=== PATIENT | female | born 1955 | race Hispanic/Latino ===

== ENCOUNTER 2017-11-03 08:11 | Outpatient (CLI) | payer OTHER ==
[2017-11-03] MEDS ORDERED: Iopamidol 370 76% 100 ML VIAL ONE (09:00)
--- NOTE | 2017-11-03 11:00 | CT ---
EXAM: CT abdomen pelvis with contrast COMPARISON: None History: Abdominal pain Findings: Lung bases are clear. No pericardial effusion. Prior cholecystectomy. The spleen, pancreas, and adrenal glands are unremarkable. No hydroureteronephrosis or nephroureterol ithiasis. Appendix is visualized and is normal. Moderate degenerative disease of the pubic symphysis. Type III-B lumbosacral transitional vertebra. Bilateral L4 pars interarticularis defects. IMPRESSION: No acute inflammatory process in the abdomen or pelvis. POS: [facility]
== END 2017-11-03 08:12 | disposition home or self-care (01) ==
LOC: NAV CT 08:11
PROVIDERS: ATTEND Family Medicine
DX: R10.9 Unspecified abdominal pain (principal)
CPT/HCPCS: 74177

== ENCOUNTER 2017-11-13 07:54 | Emergency (ER) | payer OTHER ==
[2017-11-13] MEDS ORDERED: Sodium Chloride 0.9% 1,000 ML ONE (08:48)
[2017-11-13] MEDS ORDERED: Ondansetron HCl/PF 4 MG/2 ML Vial ONE ×2 (08:48→10:39)
[2017-11-13 09:17] LABS: Bilirubin Negative (Negative); Blood, Urine Negative (Negative); Clarity Clear (Clear); Glucose, Urine (Dipstick) Negative (Negative); Leukocyte Negative (Negative); Nitrite Negative (Negative); Protein, Urine (Dipstick) Negative (Neg-Trace); Urobilinogen 0.2 mg/dL (0.2-1.0)
[2017-11-13 09:29] LABS: #Basophils 0.1 thou/uL (0.0-0.2); #Eosinphils 0.3 thou/uL (0.0-0.7); #Lymphocytes 1.8 thou/uL (1.20-3.40); #Monocytes 0.5 thou/uL (0.11-0.59); #Neutrophils 2.6 thou/uL (1.40-6.50); %Basophils 2.3 % (0.0-1.0); %Eosinophils 5.4 % (0.0-10.0); %Lymphocytes 33.3 % (21.0-51.0); %Monocytes 9.9 % (0.0-10.0); %Neutrophils 49.1 % (42.0-75.0); Hemoglobin 14.5 g/dL (12.0-16.0); Mean Corpuscular HGB CONC 31.5 g/dL (32.0-36.0); Mean Corpuscular Hemoglobin 28.3 pg (27.0-31.0); Mean Corpuscular Volume 90.1 fL (78.0-98.0); Mean Platelet Volume 5.9 fL (7.4-10.4); Platelet Count 368 thou/uL (130-400); RBC Distribution Width 12.4 % (11.5-14.5); White Blood Cell (WBC) Count 5.4 thou/uL (4.8-10.8)
[2017-11-13 09:37] LABS: ALT (SGPT) 28 U/L (8-55); AST (SGOT) 24 U/L (5-34); Albumin 4.5 g/dL (3.5-5.0); Alkaline Phosphatase 65 U/L (40-150); Anion Gap 15 mmol/L (10-20); BUN (Urea Nitrogen) 17 mg/dL (9.8-20.1); Bilirubin, Total 0.6 mg/dL (0.2-1.2); Calc. Creatinine Clearance 0 mL/min (70-130); Calcium 10.3 mg/dL (7.8-10.44); Carbon Dioxide 27 mmol/L (22-29); Chloride 102 mmol/L (98-107); Estimated GFR-MDRD 66; Globulin 3.5 g/dL (2.4-3.5); Glucose 96 mg/dL (70-105); Lipase 28 U/L (8-78); Sodium 140 mmol/L (136-145)
[2017-11-13 09:38] LABS: CKMB 0.5 ng/mL (0-6.6); Troponin I Less than 0.010 ng/mL (< 0.028)
[2017-11-13] MEDS ORDERED: Mag-Al Plus 1200 MG/1200 MG/120 MG/30 ML UDCUP ONE ×3 (09:53→12:38)
[2017-11-13] MEDS ORDERED: Lidocaine Viscous Sol 2% 15 ml UD Cup ONE ×3 (09:54→12:38)
--- NOTE | 2017-11-13 10:00 | ULT ---
ABDOMINAL ULTRASOUND: Date: 11-13-17 History: Right upper quadrant abdominal pain radiating to the left upper quadrant. Pain has become wo rse over the last two days. History of cholecystectomy one month ago. Comparison: CT abdomen/pelvis 11-03-17. FINDINGS: The gallbladder is not visualized consistent with patient's reported history of prior cholecystectomy and was also confirmed on CT exam. Common duct is only partially imaged and measures 0.75 cm, within normal limits post cholecystomy changes. The majority of the pancreas is obscured by bowel gas and not well evaluated. The liver demonstrates mild increased echogenicity suggesting mild fatty infiltration. No focal hepat ic lesion is seen. The visualized portions of the IVC, abdominal aorta, spleen, and bilateral kidneys demonstrate a norm al sonographic appearance. Each kidney measures approximately 10 cm in length. IMPRESSION: 1. Mild fatty infiltration of the liver. 2. Cholecystectomy changes. POS: [facility]
--- NOTE | 2017-11-13 10:46 | RAD ---
CHEST ONE VIEW: ABDOMEN TWO VIEWS: HISTORY: A 62-year-old female with a history of upper abdominal and epigastric pain. FINDINGS: Mild increased markings within the lungs with no confluent pneumonia, overt edema, or pleural effusio n. Atherosclerosis of the aorta. Scattered gas and fecal material throughout the colon. No overt free intraperitoneal air or large or small bowel obstruction. There is some gas within a nondilated small bowel loop in the right abdome n. IMPRESSION: 1. Gas and fecal material in the colon. 2. No overt bowel obstruction or free air. POS: [facility]
[2017-11-13] MEDS ORDERED: Promethazine HCl 25 MG/ML VIAL ONE (11:16)
[2017-11-13] MEDS ORDERED: Sodium Chloride 0.9% 250 ML 250 ML ONE (11:16)
== END 2017-11-13 13:30 | disposition home or self-care (01) ==
LOC: NAV ERS 07:54
DX: R10.13 Epigastric pain (principal); K21.9 Gastro-esophageal reflux disease without esophagitis; E03.9 Hypothyroidism, unspecified; F17.210 Nicotine dependence, cigarettes, uncomplicated; Z79.899 Other long term (current) drug therapy
CPT/HCPCS: 36415; 74022; 76700; 80053; 81003; 82553; 83605; 83690; 84484; 85025; 93005; 94760; 96361; 96365; 96375; 96376; J2270; J2405; J2550; J7050

== ENCOUNTER 2018-01-24 14:47 | Emergency (ER) | payer OTHER | END 2018-01-24 15:50 | disposition home or self-care (01) | LOC: NAV ERS 14:47 | DX: J06.9 Acute upper respiratory infection, unspecified (principal); K21.9 Gastro-esophageal reflux disease without esophagitis; E03.9 Hypothyroidism, unspecified; Z87.891 Personal history of nicotine dependence; Z79.899 Other long term (current) drug therapy | CPT/HCPCS: 99283 ==

== ENCOUNTER 2018-07-25 17:30 | Emergency (ER) | payer MEDICARE ==
[2018-07-25] MEDS ORDERED: Aspirin Chewable 81 MG TAB ONE (18:01)
[2018-07-25 18:22] LABS: ALT (SGPT) 13 U/L (8-55); AST (SGOT) 22 U/L (5-34); Albumin 3.8 g/dL (3.4-4.8); Alkaline Phosphatase 78 U/L (40-150); Anion Gap 17 mmol/L (10-20); BUN (Urea Nitrogen) 18 mg/dL (9.8-20.1); Bilirubin, Total 0.6 mg/dL (0.2-1.2); Calc. Creatinine Clearance 0 mL/min (70-130); Calcium 9.2 mg/dL (7.8-10.44); Carbon Dioxide 24 mmol/L (23-31); Chloride 100 mmol/L (98-107); Estimated GFR-MDRD 89; Globulin 3.8 g/dL (2.4-3.5); Glucose 102 mg/dL (80-115); Potassium 3.9 mmol/L (3.5-5.1); Protein, Total 7.6 g/dL (6.0-8.3); Sodium 137 mmol/L (136-145)
[2018-07-25] MEDS ORDERED: Iopamidol 370 76% 100 ML VIAL ONE (18:30)
--- NOTE | 2018-07-25 18:38 | RAD ---
CHEST TWO VIEW 07/25/18 HISTORY: Cough. Pneumonia. COMPARISON: Radiograph of 07/11/18. FINDINGS: Pleural effusions have improved from the comparison examination. Small effusions persists. Heart size upper limits of normal. No pneumothorax. No basilar consolidation. IMPRESSION: Small persistent pleural effusions. POS: HOME
[2018-07-25 18:42] LABS: Eosinophils 4 % (0-10); Hemoglobin 12.1 g/dL (12.0-16.0); Lymphocytes 18 % (21-51); MDiff Complete? YES; Mean Corpuscular Hemoglobin 27.4 pg (27.0-31.0); Mean Corpuscular Volume 91.5 fL (78.0-98.0); Mean Platelet Volume 5.2 fL (7.4-10.4); Monocytes 3 % (0-10); Neutrophil 75 % (42-75); Platelet Count 479 thou/uL (130-400); Polychromasia SLIGHT = 2-3 cells (100X) (0-2/hpf); RBC Distribution Width 15.5 % (11.5-14.5); White Blood Cell (WBC) Count 5.8 thou/uL (4.8-10.8)
[2018-07-25] MEDS ORDERED: Morphine 4 MG/ML VIAL ONE ×2 (19:15→20:34)
[2018-07-25] MEDS ORDERED: Ondansetron PF 4 MG/2 ML Vial ONE (19:15)
--- NOTE | 2018-07-25 20:01 | CT ---
CT ANGIOGRAM OF CHEST WITH CONTRAST 07/25/18 HISTORY: Chest pain. COMPARISON: Chest radiograph same day. FINDINGS: CT angiogram chest performed after the intravenous administration of contrast. 3D rendering provided. There is an embolism within the right lower lobe pulmonary artery with extension to the anterior basa l right lower lobe segmental branch. There are also emboli within the segmental arterial branches inc luding the lateral basal and anterior basal left lower lobe as well as of the posterior basal left u pper lobe. No significant reflux of contrast. There appears to be possibly some free intraperitoneal gas althoug h decreased since the 07/10/18 exam. Small collection of fluid along the second portion duodenum. Moderate right pleural effusion. Mild atelectatic changes throughout the lungs. No acute osseous abno rmality. IMPRESSION: 1. Multiple bilateral segmental pulmonary emboli. 2. Moderate right pleural effusion. 3. Continued pneumoperitoneum is abnormal this far after surgery. There is also a subcapsular co llection on the hepatic segment III as well as some fluid on the second portion of the duodenum. Surg ical consultation advised. Code SHARIF Pichardo at 7:53 p.m. POS: HOME
[2018-07-25] MEDS ORDERED: Enoxaparin Sodium 100 MG/ML SYRINGE ONE (20:07)
== END 2018-07-25 20:43 | disposition short-term general hospital (02) ==
LOC: NAV ERS 17:30
DX: J90 Pleural effusion, not elsewhere classified (principal); R06.02 Shortness of breath; M26.622 Arthralgia of left temporomandibular joint; E78.5 Hyperlipidemia, unspecified; K21.9 Gastro-esophageal reflux disease without esophagitis; E03.9 Hypothyroidism, unspecified; F41.9 Anxiety disorder, unspecified; F32.9 Major depressive disorder, single episode, unspecified; Z87.891 Personal history of nicotine dependence; Z87.01 Personal history of pneumonia (recurrent); Z79.899 Other long term (current) drug therapy
CPT/HCPCS: 71046; 71275; 80053; 82150; 83605; 83690; 84484; 85025; 85379; 93005; 96372; 96374; 96375; 96376; J1650; J2270; J2405; Q9967

== ENCOUNTER 2018-08-04 19:24 | Inpatient (IN) | payer MEDICARE ==
[2018-08-04 20:01] VITALS: BMI 38.2
[2018-08-04] MEDS ORDERED: ACETIC ACID 2% L EAR PRN (21:43)
[2018-08-04] MEDS ORDERED: Cyclobenzaprine 10 MG TAB PO PRN (21:47)
[2018-08-04] MEDS: traMADol HCl 50 MG TAB PO PRN (22:03)
[2018-08-04] MEDS: Acetaminophen 325 MG TAB PO PRN (22:03)
[2018-08-05] MEDS: Ciprofloxacin 500 MG TAB PO SCH (05:09)
[2018-08-05] MEDS: Levothyroxine Sodium 50 MCG TAB PO SCH (05:10)
[2018-08-05 05:27] LABS: #Basophils 0.1 thou/uL (0.0-0.2); #Eosinphils 0.4 thou/uL (0.0-0.7); #Lymphocytes 1.3 thou/uL (1.20-3.40); #Monocytes 0.4 thou/uL (0.11-0.59); #Neutrophils 2.1 thou/uL (1.40-6.50); %Basophils 2.2 % (0.0-1.0); %Eosinophils 9.6 % (0.0-10.0); %Lymphocytes 29.7 % (21.0-51.0); %Monocytes 10.2 % (0.0-10.0); %Neutrophils 48.3 % (42.0-75.0); Hemoglobin 11.2 g/dL (12.0-16.0); Mean Corpuscular HGB CONC 29.5 g/dL (32.0-36.0); Mean Corpuscular Hemoglobin 26.7 pg (27.0-31.0); Mean Corpuscular Volume 90.6 fL (78.0-98.0); Mean Platelet Volume 5.3 fL (7.4-10.4); Platelet Count 436 thou/uL (130-400); RBC Distribution Width 14.7 % (11.5-14.5); White Blood Cell (WBC) Count 4.4 thou/uL (4.8-10.8)
[2018-08-05 05:38] LABS: Anion Gap 17 mmol/L (10-20); BUN (Urea Nitrogen) 13 mg/dL (9.8-20.1); Calc. Creatinine Clearance 107 mL/min (70-130); Calcium 9.3 mg/dL (7.8-10.44); Carbon Dioxide 26 mmol/L (23-31); Chloride 102 mmol/L (98-107); Estimated GFR-MDRD 79; Glucose 90 mg/dL (80-115); Potassium 4.7 mmol/L (3.5-5.1); Sodium 140 mmol/L (136-145)
[2018-08-05] MEDS: Apixaban 5 MG TAB PO SCH ×2 (08:59→09:00)
[2018-08-05] MEDS: VITAMIN K2 PO SCH (09:00)
[2018-08-05] MEDS: VITAMIN D3 PO SCH (09:00)
[2018-08-05] MEDS: Multivitamin W/ Minerals 1 TAB PO SCH (09:00)
[2018-08-05] MEDS: Cyanocobalamin (Vitamin B-12) 1,000 MCG TAB PO SCH (09:00)
[2018-08-05] MEDS: traMADol HCl 50 MG TAB PO PRN (12:21)
[2018-08-05] MEDS: Acetaminophen 325 MG TAB PO PRN (12:21)
--- NOTE | 2018-08-05 14:50 | HP ---
CHIEF COMPLAINT: Pulmonary embolism and DVT with recent gastric sleeve requiring physical therapy. BRIEF HISTORY: This is a pleasant, overweight, 63-year-old, female, who recently underwent gastric sleeve surgery on July 08, presented to the hospital with severe right calf pain and chest pain on . CT chest was consistent with pulmonary embolism and was started on anticoagulation. Venous Doppler showed partially occlusive thrombus in the right posterior tibial vein. There was some free air seen intra-abdominally, but General Surgery felt that this was just consequent to the sleeve placement, and there is no evidence for any perforation. Currently, the patient is resting in bed and complaining of some pleuritic-type chest pain. She denies any shortness of breath. She denies any hemoptysis. She denies any PND or orthopnea. PAST MEDICAL HISTORY: 1. Dyslipidemia. 2. Gastroesophageal reflux disease. 3. Hypothyroidism. 4. Fibromyalgia. 5. Obesity, status post gastric sleeve surgery. 6. Cholelithiasis. 7. Anxiety and depression. PAST SURGICAL HISTORY: 1. Cervical and lumbar spinal surgery. 2. Lap-Band surgery in August 2016, and gastric sleeve placement in June 2018, and she apparently had surgery for removal of gallstones. FAMILY HISTORY: Noncontributory to current admission. PSYCHOSOCIAL HISTORY: Good family support. Used to smoke in the past. Denies any alcohol or recreational drug abuse. ALLERGIES: BACTRIM AND BACTROBAN OINTMENT. REVIEW OF SYSTEMS: RESPIRATORY: Occasional pleuritic-type chest pain and cough. Denies any hemoptysis. Denies any PND or orthopnea. CARDIOVASCULAR: Denies any palpitations. GASTROINTESTINAL: Denies any nausea, vomiting, diarrhea, constipation, hematemesis, melena, or hematochezia. GENITOURINARY: Denies any frequency, urgency, dysuria, or hematuria. CENTRAL NERVOUS SYSTEM: Generalized weakness. HEENT: Denies any difficulty with speech, vision, hearing, or swallowing. SKIN: Denies any rash. PHYSICAL EXAMINATION: GENERAL: A pleasant, 63-year-old, overweight, female, who is resting comfortably in bed and denies any concerns. She is alert, awake, and oriented x3. VITAL SIGNS: She is afebrile. Heart rate is 98, respirations 20, oxygen saturation 95% on room air, blood pressure 118/80. HEENT: Normocephalic and atraumatic. Pupils are equally reactive to light and accommodation. NECK: No JVD, thyromegaly, cervical lymphadenopathy, or throat exudates. No carotid bruits. CARDIOVASCULAR: S1 and S2 plus. Rate and rhythm are regular. RESPIRATORY: Normal vesicular breath sounds heard in all lung sanchez. ABDOMEN: Soft and nontender. Bowel sounds in all quadrants. EXTREMITIES: Without cyanosis or clubbing. Trace right leg edema. CENTRAL NERVOUS SYSTEM: Awake and responsive. Cranial nerves 2 through 12 intact. Generalized weakness. IMPRESSION: 1. Right lower extremity deep venous thrombosis and pulmonary embolism. 2. Hypothyroidism. 3. Fibromyalgia. 4. Dyslipidemia. 5. Recent gastric sleeve surgery. 6. Anxiety and depression. PLAN: 1. Continue discharge medications from the previous hospitalization, which are: a. Tylenol 650 q.4 p.r.n. b. Eliquis 10 mg b.i.d., that will be for till the , then she will start 5 mg b.i.d. from the . c. Cipro 500 mg b.i.d. d. Flexeril 10 mg t.i.d. p.r.n. e. Neurontin 300 mg at bedtime. f. Synthroid 50 mcg daily. g. Protonix 40 mg daily. h. Zocor 10 mg daily. i. Tramadol 50 mg b.i.d. p.r.n. 2. Heart-healthy diet. 3. Monitor for any signs or symptoms of bleeding. 4. Monitor GI system. 5. PT and OT to eval and treat. 6. Routine laboratory values. 7. Pain control. 8. Discussed with the patient and nursing in detail, and all questions were answered. Recent laboratory values done today show a white count of 4.4, H and H are 11.2 and 38. Sodium 140, potassium 4.7, BUN and creatinine are 13 and 0.75. Job ID: [id number]
[2018-08-05] MEDS: Ondansetron ODT 4 MG TAB SL PRN (18:45)
[2018-08-06] MEDS ORDERED: Ciprofloxacin 500 MG TAB ONE (05:40)
[2018-08-06] MEDS ORDERED: Levothyroxine Sodium 50 MCG TAB ONE (05:40)
[2018-08-06] MEDS: Gabapentin 300 MG CAP PO SCH ×2 (08:45→20:26)
[2018-08-06] MEDS: Simvastatin 10 MG TAB PO SCH ×2 (08:45→20:26)
[2018-08-06] MEDS: Apixaban 5 MG TAB PO SCH ×3 (08:45→20:26)
[2018-08-06] MEDS: Ciprofloxacin 500 MG TAB PO SCH ×2 (08:45→20:26)
[2018-08-06] MEDS: Levothyroxine Sodium 50 MCG TAB PO SCH (08:46)
[2018-08-06] MEDS: Cyanocobalamin (Vitamin B-12) 1,000 MCG TAB PO SCH (09:54)
[2018-08-06] MEDS: Multivitamin W/ Minerals 1 TAB PO SCH (09:55)
[2018-08-06] MEDS: VITAMIN D3 PO SCH (09:55)
[2018-08-06] MEDS: Acetaminophen 325 MG TAB PO PRN (09:55)
[2018-08-06] MEDS: VITAMIN K2 PO SCH (09:55)
[2018-08-06] MEDS: Ondansetron ODT 4 MG TAB SL PRN (20:25)
[2018-08-06] MEDS: traMADol HCl 50 MG TAB PO PRN (20:31)
[2018-08-07] MEDS: Levothyroxine Sodium 50 MCG TAB PO SCH (06:17)
[2018-08-07] MEDS: Ciprofloxacin 500 MG TAB PO SCH ×2 (06:17→20:35)
[2018-08-07] MEDS: Multivitamin W/ Minerals 1 TAB PO SCH (09:02)
[2018-08-07] MEDS: Apixaban 5 MG TAB PO SCH ×2 (09:02→20:35)
[2018-08-07] MEDS: Cyanocobalamin (Vitamin B-12) 1,000 MCG TAB PO SCH (09:02)
[2018-08-07] MEDS: Ondansetron ODT 4 MG TAB SL PRN (11:10)
--- NOTE | 2018-08-07 12:56 | PRG ---
DATE OF SERVICE: 08/07/2018 SUBJECTIVE: Ms. Graves is doing well except for diarrhea. She states that she had multiple episodes last night. I was not informed until this morning. Sent off a stool for C. diff and advised them to give her Imodium 2 tablets after every loose stool, maximum of eight in 24 hours. She states that she is doing great on the Imodium, but when I checked with nursing, they have not given her the Imodium yet. She apparently got the Zofran. We will wait on stool for C. diff and monitor the patient closely. OBJECTIVE: VITAL SIGNS: She is afebrile. Heart rate 98, respirations 16, oxygen saturation 97% on room air, and blood pressure 113/63. CARDIOVASCULAR SYSTEM: S1 and S2 plus. RESPIRATORY SYSTEM: Normal vesicular breath sounds. ABDOMEN: Soft and nontender. Bowel sounds in all quadrants. EXTREMITIES: Without cyanosis or clubbing. CENTRAL NERVOUS SYSTEM: AAO x3. Cranial nerves 2 through 12 intact. Generalized weakness. Wound culture is showing the Pseudomonas aeruginosa, most likely contaminant, will not treat it as her wound is healthy. IMPRESSION: 1. Right lower extremity deep venous thrombosis and pulmonary embolism. 2. Dyslipidemia. 3. Hypothyroidism. 4. Fibromyalgia. 5. Obesity status post gastric sleeve surgery. 6. Cholelithiasis. 7. Anxiety and depression. 8. Diarrhea, which seems to have resolved on its own. PLAN: 1. Continue to monitor abdominal incision. 2. Nutritional support. 3. Imodium. 4. Stool for C. diff. 5. Continue Eliquis. 6. Monitor respiratory status. 7. Physical therapy. 8. Routine laboratory values. 9. Dr. Burroughs on-call this weekend and Dr. Burroughs or Dr. Oh covering me next week. Job ID: [id number]
[2018-08-07] MEDS: Acetaminophen 325 MG TAB PO PRN (15:08)
[2018-08-07] MEDS: VITAMIN K2 PO SCH (19:05)
[2018-08-07] MEDS: VITAMIN D3 PO SCH (19:05)
[2018-08-07] MEDS: Gabapentin 300 MG CAP PO SCH (20:36)
[2018-08-07] MEDS: Simvastatin 10 MG TAB PO SCH (20:36)
[2018-08-07] MEDS: traMADol HCl 50 MG TAB PO PRN (20:39)
[2018-08-07] MEDS: Loperamide HCl 2 MG CAP PO PRN (20:39)
[2018-08-08] MEDS: Levothyroxine Sodium 50 MCG TAB PO SCH (05:53)
[2018-08-08] MEDS: Multivitamin W/ Minerals 1 TAB PO SCH (08:48)
[2018-08-08] MEDS: Cyanocobalamin (Vitamin B-12) 1,000 MCG TAB PO SCH (08:48)
[2018-08-08] MEDS: Acetaminophen 325 MG TAB PO PRN (08:48)
[2018-08-08] MEDS: Apixaban 5 MG TAB PO SCH ×2 (08:48→20:15)
[2018-08-08] MEDS: VITAMIN D3 PO SCH (08:49)
[2018-08-08] MEDS: VITAMIN K2 PO SCH (08:49)
[2018-08-08] MEDS: Loperamide HCl 2 MG CAP PO PRN (15:30)
[2018-08-08] MEDS: Gabapentin 300 MG CAP PO SCH (20:13)
[2018-08-08] MEDS: traMADol HCl 50 MG TAB PO PRN (20:13)
[2018-08-08] MEDS: Ondansetron ODT 4 MG TAB SL PRN (20:13)
[2018-08-08] MEDS: Simvastatin 10 MG TAB PO SCH (20:14)
--- NOTE | 2018-08-08 21:40 | PRG ---
DATE OF SERVICE: 08/08/2018 SUBJECTIVE: The patient is a 63-year-old female patient of Dr. Brian العلي, who is admitted to [facility] for deconditioning and physical therapy after being found to have pulmonary embolism from right lower extremity deep venous thrombosis. She is anticoagulated at this time and is doing well except for occasional diarrhea relieved by Imodium. She is up in her room, performing ADLs with no symptoms. OBJECTIVE: VITAL SIGNS: Today show temperature 98.5, pulse 90, respirations 20, O2 sats 98% on room air, and blood pressure is 135/61. LUNGS: Clear. CARDIAC: Showed regular rhythm. ABDOMEN: Soft and nontender. SKIN/EXTREMITIES: Display no edema, clubbing, cyanosis. ASSESSMENT: 1. Resolving pulmonary embolus and right lower extremity deep venous thrombosis. 2. Stable obesity, status post gastric sleeve surgery. 3. Cholelithiasis, symptomatic. 4. Fibromyalgia, stable. PLAN: 1. Continue PT/OT. 2. Monitor bowel movements for signs of recurrent diarrhea. 3. Continue apixaban for DVT and pulmonary embolus. 4. Continue to monitor vital signs with therapy. Job ID: [id number]
[2018-08-09] MEDS: Levothyroxine Sodium 50 MCG TAB PO SCH (05:57)
[2018-08-09] MEDS: Apixaban 5 MG TAB PO SCH ×2 (09:47→20:38)
[2018-08-09] MEDS: Cyanocobalamin (Vitamin B-12) 1,000 MCG TAB PO SCH (09:47)
[2018-08-09] MEDS: Multivitamin W/ Minerals 1 TAB PO SCH (09:47)
[2018-08-09] MEDS: VITAMIN K2 PO SCH (09:49)
[2018-08-09] MEDS: VITAMIN D3 PO SCH (09:49)
[2018-08-09] MEDS: Acetaminophen 325 MG TAB PO PRN (10:00)
[2018-08-09] MEDS: Ondansetron ODT 4 MG TAB SL PRN (10:03)
[2018-08-09] MEDS: Gabapentin 300 MG CAP PO SCH (20:38)
[2018-08-09] MEDS: traMADol HCl 50 MG TAB PO PRN (20:38)
[2018-08-09] MEDS: Simvastatin 10 MG TAB PO SCH (20:38)
[2018-08-10] MEDS: Levothyroxine Sodium 50 MCG TAB PO SCH (06:01)
[2018-08-10] MEDS: Multivitamin W/ Minerals 1 TAB PO SCH (09:08)
[2018-08-10] MEDS: Cyanocobalamin (Vitamin B-12) 1,000 MCG TAB PO SCH (09:09)
[2018-08-10] MEDS: Apixaban 5 MG TAB PO SCH ×2 (09:09→20:28)
[2018-08-10] MEDS: Ondansetron ODT 4 MG TAB SL PRN (09:21)
--- NOTE | 2018-08-10 09:38 | PRG ---
DATE OF SERVICE: 08/09/2018 SUBJECTIVE: The patient is a very pleasant 63-year-old female, status post recent bilateral pulmonary embolus, who has had resolution of her diarrhea with no evidence of C diff and is feeling better except she does not like the food. She is feeling stronger with no bruising or bleeding. She is having no pain or drainage from her abdominal incision. OBJECTIVE: VITAL SIGNS: Blood pressure is 108/56, temperature is 98, pulse 89, respirations 20, and O2 sats 97% on room air. LUNGS: Clear. CARDIAC: Showed regular rhythm. ABDOMEN: Soft and nontender with healing abdominal incision. SKIN/EXTREMITIES: Showed no edema, clubbing, or cyanosis. ASSESSMENT: 1. Resolving bilateral pulmonary embolus, on apixaban 5 mg twice daily. 2. Morbid obesity, status post gastric sleeve, healing well. 3. Diarrhea, resolved with no evidence of Clostridium difficile. 4. Deconditioning, cooperating with therapy. PLAN: 1. Stress the patient the need to eat and cooperate with therapy to increase her strength. 2. Continue apixaban 5 twice daily. 3. Discussed discharge safety with Physical Therapy as the patient is considering discharge home. Job ID: [id number]
[2018-08-10] MEDS: VITAMIN K2 PO SCH (11:36)
[2018-08-10] MEDS: VITAMIN D3 PO SCH (11:36)
[2018-08-10] MEDS: traMADol HCl 50 MG TAB PO PRN (20:28)
[2018-08-10] MEDS: Simvastatin 10 MG TAB PO SCH (20:28)
[2018-08-10] MEDS: Gabapentin 300 MG CAP PO SCH (20:28)
[2018-08-11] MEDS: Levothyroxine Sodium 50 MCG TAB PO SCH (06:11)
[2018-08-11] MEDS: Ondansetron ODT 4 MG TAB SL PRN (08:19)
[2018-08-11] MEDS: Multivitamin W/ Minerals 1 TAB PO SCH (08:20)
[2018-08-11] MEDS: Apixaban 5 MG TAB PO SCH ×2 (08:20→20:31)
[2018-08-11] MEDS: Cyanocobalamin (Vitamin B-12) 1,000 MCG TAB PO SCH (08:20)
[2018-08-11] MEDS: VITAMIN K2 PO SCH (10:01)
[2018-08-11] MEDS: VITAMIN D3 PO SCH (10:01)
--- NOTE | 2018-08-11 18:17 | PRG ---
DATE OF SERVICE: 08/10/2018 HISTORY OF PRESENT ILLNESS: The patient is a very pleasant 63-year-old female, admitted to inpatient rehab, status post bilateral pulmonary embolus after a gastric sleeve. She is slowly getting stronger, is walking in the guidry. She is eating somewhat better, but still has main complaints of inability to tolerate hospital food. OBJECTIVE: VITAL SIGNS: Temperature is 96.4, pulse 94, respirations 18, O2 saturations 96% on room air, and blood pressure 109/55. LUNGS: Clear. CARDIAC: Regular rhythm. ABDOMEN: Soft and nontender. SKIN AND EXTREMITIES: Display trace edema. No clubbing or cyanosis. ASSESSMENT: 1. Resolving bilateral pulmonary embolus, on apixaban, with no bruising or bleeding. 2. Morbid obesity, status post gastric sleeve, healing well. 3. Deconditioning, improving daily. 4. Poor oral appetite and we will stress increased intake. Job ID: [id number]
[2018-08-11] MEDS: traMADol HCl 50 MG TAB PO PRN (20:31)
[2018-08-11] MEDS: Simvastatin 10 MG TAB PO SCH (20:31)
[2018-08-11] MEDS: Gabapentin 300 MG CAP PO SCH (20:31)
[2018-08-12] MEDS: Acetaminophen 325 MG TAB PO PRN ×2 (05:38→20:39)
[2018-08-12] MEDS: Levothyroxine Sodium 50 MCG TAB PO SCH (05:38)
[2018-08-12 05:39] LABS: #Basophils 0.1 thou/uL (0.0-0.2); #Eosinphils 0.7 thou/uL (0.0-0.7); #Lymphocytes 1.6 thou/uL (1.20-3.40); #Monocytes 0.5 thou/uL (0.11-0.59); #Neutrophils 2.3 thou/uL (1.40-6.50); %Basophils 2.1 % (0.0-1.0); %Eosinophils 14.3 % (0.0-10.0); %Monocytes 9.4 % (0.0-10.0); %Neutrophils 44.1 % (42.0-75.0); Hemoglobin 11.4 g/dL (12.0-16.0); Mean Corpuscular HGB CONC 30.5 g/dL (32.0-36.0); Mean Corpuscular Volume 88.6 fL (78.0-98.0); Mean Platelet Volume 5.5 fL (7.4-10.4); Platelet Count 392 thou/uL (130-400); RBC Distribution Width 14.9 % (11.5-14.5); White Blood Cell (WBC) Count 5.2 thou/uL (4.8-10.8)
[2018-08-12 05:56] LABS: Anion Gap 14 mmol/L (10-20); BUN (Urea Nitrogen) 19 mg/dL (9.8-20.1); Calc. Creatinine Clearance 110 mL/min (70-130); Calcium 9.4 mg/dL (7.8-10.44); Carbon Dioxide 28 mmol/L (23-31); Chloride 103 mmol/L (98-107); Estimated GFR-MDRD 81; Glucose 93 mg/dL (80-115); Potassium 4.3 mmol/L (3.5-5.1); Sodium 141 mmol/L (136-145)
[2018-08-12] MEDS: VITAMIN D3 PO SCH (06:00)
[2018-08-12] MEDS: VITAMIN K2 PO SCH (06:00)
--- NOTE | 2018-08-12 07:04 | PRG ---
DATE OF SERVICE: 08/11/2018 SUBJECTIVE: The patient feels much better, sitting up, visiting with family. States she is eating well, is walking much better, is having no shortness of breath or chest pain, and feels she will be ready to discharge home in 1 to 2 days. OBJECTIVE: VITAL SIGNS: Show her temperature is 98, pulse 75, respirations 20, O2 sats 96% on room air, and blood pressure 102/52. LUNGS: Clear. CARDIAC: Showed regular rhythm. ABDOMEN: Soft and nontender. SKIN AND EXTREMITIES: Show no edema, clubbing, or cyanosis. ASSESSMENT: 1. Resolving bilateral pulmonary embolus, on apixaban with no complication. 2. Deconditioning, improving daily. The patient is now walking 75 and 48 feet with a rolling walker, only standby assistance. 3. Morbid obesity, status post gastric sleeve. Tolerating diet better and healing well with increased appetite and intake. PLAN: Continue PT/OT for 1 to 2 more days and plan on discharge. Continue apixaban and continue this as an outpatient. Job ID: [id number]
[2018-08-12] MEDS: Apixaban 5 MG TAB PO SCH ×2 (08:43→20:39)
[2018-08-12] MEDS: Cyanocobalamin (Vitamin B-12) 1,000 MCG TAB PO SCH (08:43)
[2018-08-12] MEDS: Multivitamin W/ Minerals 1 TAB PO SCH (08:44)
[2018-08-12] MEDS: Ondansetron ODT 4 MG TAB SL PRN ×2 (08:46→21:50)
[2018-08-12] MEDS: Simvastatin 10 MG TAB PO SCH (20:39)
[2018-08-12] MEDS: traMADol HCl 50 MG TAB PO PRN (20:39)
[2018-08-12] MEDS: Gabapentin 300 MG CAP PO SCH (20:39)
--- NOTE | 2018-08-12 21:02 | PRG ---
DATE OF SERVICE: 08/12/2018 SUBJECTIVE: The patient feels well, is working with therapy, having only complaints of persistent open wound but with minimal drainage and problems with eating and non-bariatric vitamins with nausea and requesting nausea medicine. She feels, however, she is getting stronger and is able to do her ADLs at home. She is denying any shortness of breath. OBJECTIVE: VITAL SIGNS: Show blood pressure is 105/58, temperature is 98.5, pulse 74, respirations 16, O2 sats 93% on room air. LUNGS: Clear. ABDOMEN: Soft with a healing abdominal incision. CARDIAC: Shows regular rhythm. SKIN/EXTREMITIES: Show no edema or clubbing. LABORATORY DATA: Labs show a white count of 5200, hematocrit 37, hemoglobin 11. Sodium 141, potassium 4.3, chloride 103, bicarb 28, BUN 19, creatinine 0.73, glucose 93, calcium 9.4. ASSESSMENT: 1. Resolving bilateral pulmonary embolus, on apixaban. 2. Improving deconditioning with ability to maintain activities of daily living, ready for discharge. 3. Morbid obesity, status post gastric sleeve. No evidence of infection, and healing wound, but with some nausea with non-bariatric vitamins. PLAN: Start on Zofran 4 mg every 6 hours as needed for nausea. Plan for discharge tomorrow to follow up with primary care physician, Dr. Daniels next week and surgeon in 2 weeks. Job ID: [id number]
[2018-08-13] MEDS: Levothyroxine Sodium 50 MCG TAB PO SCH (05:56)
[2018-08-13 08:01] VITALS: BP 109/72; TEMP 98.3
[2018-08-13] MEDS: Ondansetron ODT 4 MG TAB SL PRN (08:57)
[2018-08-13] MEDS: Apixaban 5 MG TAB PO SCH (08:58)
[2018-08-13] MEDS: Multivitamin W/ Minerals 1 TAB PO SCH (08:58)
[2018-08-13] MEDS: Cyanocobalamin (Vitamin B-12) 1,000 MCG TAB PO SCH (08:59)
[2018-08-13] MEDS: VITAMIN D3 PO SCH (09:02)
[2018-08-13] MEDS: VITAMIN K2 PO SCH (09:02)
== END 2018-08-13 10:00 | disposition home or self-care (01) | DRG 299 ==
LOC: NAV ACUTE 19:24
PROVIDERS: ADMIT Internal Medicine; ATTEND Internal Medicine
DX: I82.441 Acute embolism and thrombosis of right tibial vein (principal); I26.99 Other pulmonary embolism without acute cor pulmonale; E03.9 Hypothyroidism, unspecified; E78.5 Hyperlipidemia, unspecified; M79.7 Fibromyalgia; F41.9 Anxiety disorder, unspecified; F32.9 Major depressive disorder, single episode, unspecified; K21.9 Gastro-esophageal reflux disease without esophagitis; K80.20 Calculus of gallbladder without cholecystitis without obstruction; R63.8 Other symptoms and signs concerning food and fluid intake; R19.7 Diarrhea, unspecified; R53.81 Other malaise; Z87.891 Personal history of nicotine dependence; Z88.1 Allergy status to other antibiotic agents; Z88.8 Allergy status to other drugs, medicaments and biological substances; Z98.84 Bariatric surgery status
CPT/HCPCS: 36415; 80048; 85025; 87070; 87077; 87186; 87205; 87324; 87449; 97602; Q0162

== ENCOUNTER 2018-09-21 07:52 | Outpatient (CLI) | payer MEDICARE ==
[2018-09-21] MEDS ORDERED: Iopamidol 370 76% 100 ML VIAL ONE (09:00)
--- NOTE | 2018-09-21 11:28 | CT ---
CT ABDOMEN AND PELVIS WITH IV CONTRAST: HISTORY: Midabdominal pain. History of prior gastric sleeve procedure. COMPARISON: 07/26/2018. FINDINGS: Calcified granuloma is seen at the right lung base as well as in the spleen. There is dependent biba silar atelectasis. Post cholecystectomy changes are noted. Postsurgical changes related to gastric sleeve procedure are again seen. A subcentimeter too small to characterize hypodense lesion is seen in the anterior aspect mid portion left kidney. The kidneys otherwise have a normal CT appearance. The liver, pancreas, bilateral adrenal glands, and incompletely distended urinary bladder demonstrate a normal CT appearance. The uterus is not visualized likely related to prior hysterectomy. Minimal vascular calcifications are seen within the abdominal aorta and iliac arteries. A few scattered colonic diverticula are seen. Loops of small bowel are normal in caliber. The appen jorge is normal in caliber. Linear densities are seen within the left anterior abdominal wall which may be related to mild scarri ng. Subcutaneous emphysema in this region has resolved. There is a suggestion of a small hiatal hernia. There has been interval resolution of right pleural effusion and atelectasis. There has been no other interval change when compared to the prior exam. Spondylolisthesis lumbosacr al junction is again identified. The uterus demonstrates a normal sonographic appearance for the patient's age. IMPRESSION: 1. Postsurgical changes related to gastric sleeve procedure and cholecystectomy. 2. No acute findings are seen in the abdomen or pelvis. 3. Small hiatal hernia. 4. Subcentimeter too small to characterize hypodense lesion left kidney. 5. Grade I spondylolisthesis lumbosacral junction. POS: [facility]
== END 2018-09-21 07:53 | disposition home or self-care (01) ==
LOC: NAV CT 07:52
PROVIDERS: ATTEND Surgery
DX: R10.9 Unspecified abdominal pain (principal); K44.9 Diaphragmatic hernia without obstruction or gangrene; M43.17 Spondylolisthesis, lumbosacral region; R93.422 Abnormal radiologic findings on diagnostic imaging of left kidney; Z98.890 Other specified postprocedural states; Z90.49 Acquired absence of other specified parts of digestive tract
CPT/HCPCS: 74177; Q9967

== ENCOUNTER 2019-01-11 08:55 | Outpatient (CLI) | payer MEDICARE ==
--- NOTE | 2019-01-11 09:47 | RAD ---
XR Lumbar Spine 2 Or 3 View History: Low back pain Comparison: CT of abdomen and pelvis September 2018 Findings: There is a lumbosacral transitional vertebra with the enlarged transverse processes fused w ith the sacrum. This will be termed L5 for basis of this examination. There is grade 2 L4 over L5 anterolisthesis due to pars interarticularis defects with high-grade narrowing of the L4-5 disc space. The right upper quadrant left upper quadrant surgical clips. No dilated loops of large or small bowel . Impression: 1. L5 IIIB lumbosacral transitional vertebra. 2. Bilateral L4 pars interarticularis defects with grade 2 anterolisthesis as well as severe degenera tive disc space height loss.
--- NOTE | 2019-01-11 11:48 | RAD ---
SACRUM AND COCCYX 3 VIEWS: Date: 01/11/19 HISTORY: Back and tailbone pain after a fall. FINDINGS: SI joints are symmetric. I do not appreciate any fracture of the sacrum or coccyx. If there is a high index of suspicion of fracture, then CT would be recommended. Arthritic changes of lower lumbar spin e are seen. IMPRESSION: No acute injury. POS: [facility]
== END 2019-01-11 08:56 | disposition home or self-care (01) ==
LOC: NAV RAD 08:55
PROVIDERS: ATTEND Family Medicine
DX: M54.5 Low back pain (principal); M54.9 Dorsalgia, unspecified; M54.2 Cervicalgia; M43.16 Spondylolisthesis, lumbar region; M51.36 Other intervertebral disc degeneration, lumbar region
CPT/HCPCS: 72100; 72220

== ENCOUNTER 2019-01-25 15:49 | Emergency (ER) | payer MEDICARE ==
[2019-01-25 16:27] LABS: Bilirubin Negative (Negative); Blood, Urine Trace (Negative); Glucose, Urine (Dipstick) Negative (Negative); Leukocyte Negative (Negative); Nitrite Positive (Negative); Protein, Urine (Dipstick) Negative (Neg-Trace); Urobilinogen 0.2 mg/dL (Less than 2)
[2019-01-25 16:38] LABS: Clarity SL HAZY (Clear)
[2019-01-25 16:40] LABS: Bacteria/HPF 4+ HPF (None Seen); RBC/HPF 0-3 HPF (0-3); WBC/HPF 0-3 HPF (0-3)
[2019-01-25 17:01] LABS: #Basophils 0.1 thou/uL (0.0-0.2); #Eosinphils 0.3 thou/uL (0.0-0.7); #Lymphocytes 1.7 thou/uL (1.20-3.40); #Monocytes 0.4 thou/uL (0.11-0.59); #Neutrophils 2.2 thou/uL (1.40-6.50); %Basophils 2.5 % (0.0-1.0); %Eosinophils 6.7 % (0.0-10.0); %Lymphocytes 35.8 % (21.0-51.0); %Monocytes 8.3 % (0.0-10.0); %Neutrophils 46.7 % (42.0-75.0); Hemoglobin 11.7 g/dL (12.0-16.0); Mean Corpuscular HGB CONC 31.6 g/dL (32.0-36.0); Mean Corpuscular Hemoglobin 28.8 pg (27.0-31.0); Mean Corpuscular Volume 91.1 fL (78.0-98.0); Mean Platelet Volume 5.9 fL (7.4-10.4); Platelet Count 264 thou/uL (130-400); RBC Distribution Width 13.9 % (11.5-14.5); Red Blood Cell (RBC) Count 4.08 mill/uL (4.20-5.40); White Blood Cell (WBC) Count 4.8 thou/uL (4.8-10.8)
[2019-01-25 17:14] LABS: Anion Gap 14 mmol/L (10-20); BUN (Urea Nitrogen) 17 mg/dL (9.8-20.1); Calc. Creatinine Clearance 0 mL/min (70-130); Carbon Dioxide 25 mmol/L (23-31); Chloride 107 mmol/L (98-107); Estimated GFR-MDRD 75; Glucose 80 mg/dL (80-115); Potassium 3.9 mmol/L (3.5-5.1); Sodium 142 mmol/L (136-145)
== END 2019-01-25 16:56 | disposition home or self-care (01) ==
LOC: NAV ERS 15:49
DX: N39.0 Urinary tract infection, site not specified (principal); E78.5 Hyperlipidemia, unspecified; E78.00 Pure hypercholesterolemia, unspecified; K21.9 Gastro-esophageal reflux disease without esophagitis; E03.9 Hypothyroidism, unspecified; F41.9 Anxiety disorder, unspecified; F32.9 Major depressive disorder, single episode, unspecified; Z87.891 Personal history of nicotine dependence; Z79.899 Other long term (current) drug therapy
CPT/HCPCS: 80048; 81003; 81015; 85025; 99283

== ENCOUNTER 2019-03-10 14:14 | Outpatient (CLI) | payer MEDICARE ==
--- NOTE | 2019-03-10 14:42 | RAD ---
THORACIC SPINE THREE VIEWS: HISTORY: Pain. COMPARISON: None. FINDINGS: There is calcification projecting over the left aortopulmonary window. There are left upper quadrant and right upper quadrant surgical clips. No confluent air space consolidation, pneumothorax or effusion. No osseous abnormality of the thoraci c spine. IMPRESSION: No acute thoracic spine abnormality. POS: [facility]
== END 2019-03-10 14:15 | disposition home or self-care (01) ==
LOC: NAV RAD 14:14
PROVIDERS: ATTEND Family Medicine
DX: M54.6 Pain in thoracic spine (principal)
CPT/HCPCS: 72072

== ENCOUNTER 2019-06-01 20:14 | Emergency (ER) | payer MEDICARE ==
[2019-06-01] MEDS ORDERED: Aspirin Chewable 81 MG TAB ONE (20:27)
--- NOTE | 2019-06-01 20:55 | RAD ---
Chest one view HISTORY: Chest pain. COMPARISON: 07/11/2018. FINDINGS: Cardiac silhouette is magnified by projection. Pulmonary vasculature is unremarkable. Mediastinum is midline. Postoperative changes cervical spine partially visualized. Calcified granulomata are consistent with healed granulomatous disease. No lobar consolidation or jarod dence of pneumothorax. telemetry monitor leads overlie the chest. IMPRESSION : No active cardiopulmonary abnormalities are demonstrated.
[2019-06-01 20:59] LABS: #Basophils 0.1 thou/uL (0.0-0.2); #Eosinphils 0.4 thou/uL (0.0-0.7); #Lymphocytes 2.4 thou/uL (1.20-3.40); #Monocytes 0.4 thou/uL (0.11-0.59); #Neutrophils 1.3 thou/uL (1.40-6.50); %Basophils 1.7 % (0.0-1.0); %Lymphocytes 53.4 % (21.0-51.0); %Monocytes 8.6 % (0.0-10.0); %Neutrophils 28.2 % (42.0-75.0); Hemoglobin 13.1 g/dL (12.0-16.0); Mean Corpuscular HGB CONC 31.4 g/dL (32.0-36.0); Mean Corpuscular Hemoglobin 30.2 pg (27.0-31.0); Mean Corpuscular Volume 96.2 fL (78.0-98.0); Mean Platelet Volume 6.5 fL (7.4-10.4); Platelet Count 266 thou/uL (130-400); RBC Distribution Width 12.3 % (11.5-14.5); Red Blood Cell (RBC) Count 4.35 mill/uL (4.20-5.40); White Blood Cell (WBC) Count 4.4 thou/uL (4.8-10.8)
[2019-06-01 21:01] LABS: ALT (SGPT) 18 U/L (8-55); AST (SGOT) 21 U/L (5-34); Albumin 4.2 g/dL (3.4-4.8); Alkaline Phosphatase 59 U/L (40-110); Anion Gap 14 mmol/L (10-20); BUN (Urea Nitrogen) 18 mg/dL (9.8-20.1); Bilirubin, Total 0.2 mg/dL (0.2-1.2); CK (CPK) 70 U/L (29-168); Calc. Creatinine Clearance 0 mL/min (70-130); Calcium 9.6 mg/dL (7.8-10.44); Carbon Dioxide 28 mmol/L (23-31); Chloride 103 mmol/L (98-107); Estimated GFR-MDRD 72; Globulin 2.9 g/dL (2.4-3.5); Glucose 93 mg/dL (80-115); Protein, Total 7.1 g/dL (6.0-8.3); Sodium 141 mmol/L (136-145)
== END 2019-06-01 21:46 | disposition home or self-care (01) ==
LOC: NAV ERS 20:14
DX: R00.1 Bradycardia, unspecified (principal); M79.662 Pain in left lower leg; E78.5 Hyperlipidemia, unspecified; E78.00 Pure hypercholesterolemia, unspecified; K21.9 Gastro-esophageal reflux disease without esophagitis; E03.9 Hypothyroidism, unspecified; M79.7 Fibromyalgia; F41.9 Anxiety disorder, unspecified; F32.9 Major depressive disorder, single episode, unspecified; Z87.891 Personal history of nicotine dependence; Z79.899 Other long term (current) drug therapy
CPT/HCPCS: 71045; 80053; 82550; 84484; 85025; 85379; 93005; 94760

== ENCOUNTER 2020-05-04 00:57 | Emergency (ER) | payer MEDICARE ==
[2020-05-04 01:23] LABS: #Basophils 0.1 thou/uL (0.0-0.2); #Eosinphils 0.2 thou/uL (0.0-0.7); #Lymphocytes 0.5 thou/uL (1.20-3.40); #Monocytes 0.6 thou/uL (0.11-0.59); %Basophils 2.5 % (0.0-1.0); %Eosinophils 4.8 % (0.0-10.0); %Monocytes 13.4 % (0.0-10.0); %Neutrophils 67.3 % (42.0-75.0); Hemoglobin 12.5 g/dL (12.0-16.0); Manual Diff?? NO; Mean Corpuscular Hemoglobin 29.6 pg (27.0-31.0); Mean Corpuscular Volume 92.3 fL (78.0-98.0); Mean Platelet Volume 5.5 fL (7.4-10.4); Platelet Count 238 thou/uL (130-400); RBC Distribution Width 12.1 % (11.5-14.5); Red Blood Cell (RBC) Count 4.22 mill/uL (4.20-5.40); White Blood Cell (WBC) Count 4.5 thou/uL (4.8-10.8)
[2020-05-04] MEDS ORDERED: Aspirin Chewable 81 MG TAB ONE (01:26)
[2020-05-04 01:36] LABS: ALT (SGPT) 14 U/L (8-55); AST (SGOT) 19 U/L (5-34); Albumin 3.8 g/dL (3.4-4.8); Anion Gap 13 mmol/L (10-20); Bilirubin, Total 0.4 mg/dL (0.2-1.2); Calc. Creatinine Clearance 0 mL/min (70-130); Calcium 8.9 mg/dL (7.8-10.44); Carbon Dioxide 26 mmol/L (23-31); Globulin 2.7 g/dL (2.4-3.5); Lipase 31 U/L (8-78); Potassium 4.2 mmol/L (3.5-5.1); Protein, Total 6.5 g/dL (5.8-8.1)
[2020-05-04 01:41] LABS: BUN (Urea Nitrogen) 17 mg/dL (9.8-20.1); Chloride 103 mmol/L (98-107)
[2020-05-04 01:42] LABS: Alkaline Phosphatase 52 U/L (40-110); Glucose 104 mg/dL (80-115); Sodium 138 mmol/L (136-145)
[2020-05-04] MEDS ORDERED: Sodium Chloride 0.9% 1,000 ML ONE ×3 (02:17→05:29)
[2020-05-04 04:43] LABS: Troponin I Less than 0.010 ng/mL (< 0.028)
[2020-05-04 05:44] LABS: Bilirubin Negative (Negative); Blood, Urine Negative (Negative); Clarity Clear (Clear); Glucose, Urine (Dipstick) Negative (Negative); Ketone, Urine Negative (Negative); Leukocyte Negative (Negative); Nitrite Negative (Negative); Protein, Urine (Dipstick) Negative (Neg-Trace); Specific Gravity, Urine 1.015 (1.005-1.030); Urobilinogen 0.2 mg/dL (Less than 2)
== END 2020-05-04 07:09 | disposition home or self-care (01) ==
LOC: NAV ERS 00:57
DX: R07.89 Other chest pain (principal); I95.1 Orthostatic hypotension; E78.5 Hyperlipidemia, unspecified; E78.00 Pure hypercholesterolemia, unspecified; K21.9 Gastro-esophageal reflux disease without esophagitis; E03.9 Hypothyroidism, unspecified; M79.7 Fibromyalgia; F17.210 Nicotine dependence, cigarettes, uncomplicated; Z79.899 Other long term (current) drug therapy
CPT/HCPCS: 71045; 80053; 81003; 83605; 83690; 84484; 85025; 85379; 93005; J7050

== ENCOUNTER 2020-07-07 07:29 | Outpatient (CLI) | payer MEDICARE | END 2020-07-07 07:30 | disposition home or self-care (01) | LOC: NAV RAD 07:29 | PROVIDERS: ATTEND Family Medicine | DX: M79.602 Pain in left arm (principal) ==

== ENCOUNTER 2020-08-24 07:52 | Emergency (ER) | payer MEDICARE ==
[2020-08-24 08:37] LABS: ALT (SGPT) 89 U/L (8-55); AST (SGOT) 137 U/L (5-34); Albumin 3.7 g/dL (3.4-4.8); Alkaline Phosphatase 132 U/L (40-110); Anion Gap 13 mmol/L (10-20); BUN (Urea Nitrogen) 15 mg/dL (9.8-20.1); Bilirubin, Total 0.2 mg/dL (0.2-1.2); CK (CPK) 60 U/L (29-168); Calc. Creatinine Clearance 0 mL/min (70-130); Carbon Dioxide 27 mmol/L (23-31); Chloride 104 mmol/L (98-107); Globulin 2.9 g/dL (2.4-3.5); Glucose 91 mg/dL (80-115); Lipase 36 U/L (8-78); Potassium 4.3 mmol/L (3.5-5.1); Protein, Total 6.6 g/dL (5.8-8.1); Sodium 140 mmol/L (136-145)
[2020-08-24] MEDS ORDERED: Pantoprazole 40 MG VIAL ONE (08:37)
[2020-08-24] MEDS ORDERED: Mag-Al Plus 1200 MG/1200 MG/120 MG/30 ML UDCUP ONE (08:37)
[2020-08-24] MEDS ORDERED: Ondansetron PF 4 MG/2 ML Vial ONE (08:37)
[2020-08-24] MEDS ORDERED: Sodium Chloride 0.9% 1,000 ML ONE (08:37)
[2020-08-24] MEDS ORDERED: Lidocaine Viscous Sol 2% 15 ml UD Cup ONE (08:37)
[2020-08-24 08:55] LABS: Hemoglobin 12.9 g/dL (12.0-16.0); Mean Corpuscular HGB CONC 30.3 g/dL (32.0-36.0); Mean Corpuscular Hemoglobin 29.5 pg (27.0-31.0); Mean Corpuscular Volume 97.5 fL (78.0-98.0); Mean Platelet Volume 5.8 fL (7.4-10.4); Platelet Count 220 thou/uL (130-400); RBC Distribution Width 12.8 % (11.5-14.5); Red Blood Cell (RBC) Count 4.38 mill/uL (4.20-5.40); White Blood Cell (WBC) Count 2.3 thou/uL (4.8-10.8)
[2020-08-24 08:59] LABS: Eosinophils 1 % (0-10); Lymphocytes 21 % (21-51); Monocytes 26 % (0-10); Neutrophil 52 % (42-75)
[2020-08-24 09:00] LABS: MDiff Complete? YES; Platelet Morphology Comment Appears Adequate
[2020-08-24 10:07] LABS: Bilirubin Negative (Negative); Blood, Urine Trace (Negative); Clarity Clear (Clear); Glucose, Urine (Dipstick) Negative (Negative); Ketone, Urine Negative (Negative); Leukocyte Negative (Negative); Nitrite Negative (Negative); Protein, Urine (Dipstick) Negative (Neg-Trace); Urobilinogen 0.2 mg/dL (Less than 2); pH, Urine 5.5 (5.0-9.0)
[2020-08-24 10:08] LABS: Bacteria/HPF None Seen HPF (None Seen); RBC/HPF 0-3 HPF (0-3); Squamous Epithelial None Seen HPF (0-3); WBC/HPF 0-3 HPF (0-3)
== END 2020-08-24 12:00 | disposition home or self-care (01) ==
LOC: NAV ERS 07:52
DX: E86.0 Dehydration (principal); E78.5 Hyperlipidemia, unspecified; E78.00 Pure hypercholesterolemia, unspecified; K21.9 Gastro-esophageal reflux disease without esophagitis; E03.9 Hypothyroidism, unspecified; Z87.891 Personal history of nicotine dependence; Z79.899 Other long term (current) drug therapy
CPT/HCPCS: 71045; 74177; 80053; 81003; 81015; 82550; 83605; 83690; 84484; 85025; 93005; 96374; 96375; C9113; J2405; J7050

== ENCOUNTER 2021-01-01 13:38 | Emergency (ER) | payer OTHER, MEDICARE ==
[2021-01-01] MEDS ORDERED: Lidocaine 1% (PF) 30 ML VIAL ONE (14:02)
[2021-01-01] MEDS ORDERED: Bacitracin 1 PK ONE (14:07)
== END 2021-01-01 14:20 | disposition home or self-care (01) ==
LOC: NAV ERS 13:38
DX: S91.312A Laceration without foreign body, left foot, initial encounter (principal); W22.8XXA Striking against or struck by other objects, initial encounter; Z79.899 Other long term (current) drug therapy; E78.5 Hyperlipidemia, unspecified; E78.00 Pure hypercholesterolemia, unspecified; K21.9 Gastro-esophageal reflux disease without esophagitis; E03.9 Hypothyroidism, unspecified; Z87.891 Personal history of nicotine dependence
CPT/HCPCS: 12001; J2001

== ENCOUNTER 2021-01-13 10:49 | Emergency (ER) | payer MEDICARE | END 2021-01-13 11:22 | disposition home or self-care (01) | LOC: NAV ERS 10:49 | DX: S91.312D Laceration without foreign body, left foot, subsequent encounter (principal); E78.5 Hyperlipidemia, unspecified; K21.9 Gastro-esophageal reflux disease without esophagitis; E03.9 Hypothyroidism, unspecified; Z87.891 Personal history of nicotine dependence; Z79.899 Other long term (current) drug therapy ==

== ENCOUNTER 2021-04-05 06:59 | Emergency (ER) | payer MEDICARE ==
[2021-04-05 07:52] LABS: #Basophils 0.1 thou/uL (0.0-0.2); #Eosinphils 0.3 thou/uL (0.0-0.7); #Lymphocytes 1.1 thou/uL (1.20-3.40); #Monocytes 0.4 thou/uL (0.11-0.59); #Neutrophils 1.9 thou/uL (1.40-6.50); %Basophils 2.4 % (0.0-1.0); %Eosinophils 8.2 % (0.0-10.0); %Lymphocytes 29.7 % (21.0-51.0); %Monocytes 11.3 % (0.0-10.0); %Neutrophils 48.4 % (42.0-75.0); Hemoglobin 12.5 g/dL (12.0-16.0); Mean Corpuscular HGB CONC 32.2 g/dL (32.0-36.0); Mean Corpuscular Hemoglobin 30.5 pg (27.0-31.0); Mean Corpuscular Volume 94.7 fL (78.0-98.0); Mean Platelet Volume 5.5 fL (7.4-10.4); Platelet Count 218 thou/uL (130-400); RBC Distribution Width 12.1 % (11.5-14.5); Red Blood Cell (RBC) Count 4.09 mill/uL (4.20-5.40); White Blood Cell (WBC) Count 3.9 thou/uL (4.8-10.8)
[2021-04-05 08:06] LABS: ALT (SGPT) 12 U/L (8-55); AST (SGOT) 17 U/L (5-34); Albumin 3.9 g/dL (3.4-4.8); Alkaline Phosphatase 42 U/L (40-110); Anion Gap 13 mmol/L (10-20); BUN (Urea Nitrogen) 16 mg/dL (9.8-20.1); Bilirubin, Total 0.4 mg/dL (0.2-1.2); CK (CPK) 61 U/L (29-168); Calc. Creatinine Clearance 0 mL/min (70-130); Calcium 9.2 mg/dL (7.8-10.44); Carbon Dioxide 28 mmol/L (23-31); Chloride 107 mmol/L (98-107); Globulin 2.8 g/dL (2.4-3.5); Glucose 98 mg/dL (80-115); Potassium 4.8 mmol/L (3.5-5.1); Protein, Total 6.7 g/dL (5.8-8.1); Sodium 143 mmol/L (136-145)
[2021-04-05] MEDS ORDERED: Acetaminophen 500 MG TAB ONE (08:48)
[2021-04-05 11:07] LABS: Troponin I Less than 0.010 ng/mL (< 0.028)
[2021-04-05 23:10] LABS: SARS-CoV-2 PCR by NAA Not Detected (NotDetected)
== END 2021-04-05 11:20 | disposition home or self-care (01) ==
LOC: NAV ERS 06:59
DX: M25.512 Pain in left shoulder (principal); M54.2 Cervicalgia; R07.9 Chest pain, unspecified; Z20.822 Contact with and (suspected) exposure to COVID-19; E78.5 Hyperlipidemia, unspecified; E78.00 Pure hypercholesterolemia, unspecified; K21.9 Gastro-esophageal reflux disease without esophagitis; E03.9 Hypothyroidism, unspecified; Z87.891 Personal history of nicotine dependence; Z79.899 Other long term (current) drug therapy
CPT/HCPCS: 71046; 80053; 82550; 84484; 85025; 86140; 93005; U0003; U0005

== ENCOUNTER 2021-06-24 08:41 | Emergency (ER) | payer MEDICARE ==
[2021-06-24 09:56] LABS: #Basophils 0.1 thou/uL (0.0-0.2); #Eosinphils 0.2 thou/uL (0.0-0.7); #Lymphocytes 1.2 thou/uL (1.20-3.40); #Monocytes 0.4 thou/uL (0.11-0.59); #Neutrophils 1.9 thou/uL (1.40-6.50); %Basophils 2.5 % (0.0-1.0); %Eosinophils 5.7 % (0.0-10.0); %Lymphocytes 31.2 % (21.0-51.0); %Monocytes 10.8 % (0.0-10.0); %Neutrophils 49.8 % (42.0-75.0); Hemoglobin 11.5 g/dL (12.0-16.0); Mean Corpuscular HGB CONC 29.8 g/dL (32.0-36.0); Mean Corpuscular Hemoglobin 28.7 pg (27.0-31.0); Mean Corpuscular Volume 96.2 fL (78.0-98.0); Mean Platelet Volume 6.6 fL (7.4-10.4); Platelet Count 292 thou/uL (130-400); RBC Distribution Width 12.3 % (11.5-14.5); White Blood Cell (WBC) Count 3.9 thou/uL (4.8-10.8)
[2021-06-24 10:19] LABS: ALT (SGPT) 15 U/L (8-55); AST (SGOT) 20 U/L (5-34); Albumin 3.8 g/dL (3.4-4.8); Alkaline Phosphatase 51 U/L (40-110); Anion Gap 15 mmol/L (10-20); BUN (Urea Nitrogen) 18 mg/dL (9.8-20.1); Bilirubin, Total 0.3 mg/dL (0.2-1.2); Calc. Creatinine Clearance 0 mL/min (70-130); Calcium 9.3 mg/dL (7.8-10.44); Carbon Dioxide 29 mmol/L (23-31); Chloride 103 mmol/L (98-107); Globulin 2.8 g/dL (2.4-3.5); Glucose 80 mg/dL (80-115); Potassium 5.1 mmol/L (3.5-5.1); Protein, Total 6.6 g/dL (5.8-8.1); Sodium 142 mmol/L (136-145)
[2021-06-24 10:47] LABS: Bilirubin Negative (Negative); Blood, Urine Negative (Negative); Clarity Clear (Clear); Glucose, Urine (Dipstick) Negative (Negative); Ketone, Urine Negative (Negative); Leukocyte Negative (Negative); Nitrite Negative (Negative); Protein, Urine (Dipstick) Negative (Neg-Trace); Urobilinogen 0.2 mg/dL (Less than 2)
== END 2021-06-24 11:40 | disposition home or self-care (01) ==
LOC: NAV ERS 08:41
DX: D64.9 Anemia, unspecified (principal); R53.1 Weakness; R51.9 Headache, unspecified; E78.00 Pure hypercholesterolemia, unspecified; E78.5 Hyperlipidemia, unspecified; K21.9 Gastro-esophageal reflux disease without esophagitis; E03.9 Hypothyroidism, unspecified; Z87.891 Personal history of nicotine dependence; Z79.82 Long term (current) use of aspirin; Z79.899 Other long term (current) drug therapy
CPT/HCPCS: 80053; 81003; 84484; 85025; 93005

== ENCOUNTER 2021-07-03 09:36 | Emergency (ER) | payer MEDICARE ==
[2021-07-03] MEDS ORDERED: Lidocaine Viscous Sol 2% 15 ml UD Cup ONE (10:10)
[2021-07-03] MEDS ORDERED: Mag-Al Plus 1200 MG/1200 MG/120 MG/30 ML UDCUP ONE (10:10)
[2021-07-03] MEDS ORDERED: Pantoprazole 40 MG VIAL ONE (10:10)
[2021-07-03 10:36] LABS: #Basophils 0.1 thou/uL (0.0-0.2); #Eosinphils 0.4 thou/uL (0.0-0.7); #Lymphocytes 1.4 thou/uL (1.20-3.40); #Monocytes 0.4 thou/uL (0.11-0.59); #Neutrophils 1.2 thou/uL (1.40-6.50); %Basophils 3.8 % (0.0-1.0); %Eosinophils 9.4 % (0.0-10.0); %Monocytes 10.5 % (0.0-10.0); %Neutrophils 41.3 % (42.0-75.0); Hemoglobin 11.5 g/dL (12.0-16.0); Mean Corpuscular HGB CONC 29.8 g/dL (32.0-36.0); Mean Corpuscular Hemoglobin 28.7 pg (27.0-31.0); Mean Corpuscular Volume 96.4 fL (78.0-98.0); Mean Platelet Volume 6.6 fL (7.4-10.4); Platelet Count 244 thou/uL (130-400); RBC Distribution Width 12.7 % (11.5-14.5)
[2021-07-03 10:39] LABS: ALT (SGPT) 18 U/L (8-55); AST (SGOT) 26 U/L (5-34); Albumin 3.7 g/dL (3.4-4.8); Alkaline Phosphatase 46 U/L (40-110); Anion Gap 17 mmol/L (10-20); BUN (Urea Nitrogen) 14 mg/dL (9.8-20.1); Bilirubin, Total 0.3 mg/dL (0.2-1.2); Calc. Creatinine Clearance 0 mL/min (70-130); Calcium 8.7 mg/dL (7.8-10.44); Carbon Dioxide 23 mmol/L (23-31); Chloride 106 mmol/L (98-107); Globulin 2.6 g/dL (2.4-3.5); Glucose 88 mg/dL (80-115); Lipase 42 U/L (8-78); Potassium 4.5 mmol/L (3.5-5.1); Protein, Total 6.3 g/dL (5.8-8.1); Sodium 141 mmol/L (136-145)
[2021-07-03 10:55] LABS: Bilirubin Negative (Negative); Clarity Clear (Clear); Glucose, Urine (Dipstick) Negative (Negative); Ketone, Urine Negative (Negative); Leukocyte Negative (Negative); Nitrite Negative (Negative); Protein, Urine (Dipstick) Negative (Neg-Trace); Specific Gravity, Urine 1.015 (1.005-1.030); Urobilinogen 0.2 mg/dL (Less than 2); pH, Urine 6.5 (5.0-9.0)
[2021-07-03 10:56] LABS: Blood, Urine Negative (Negative)
[2021-07-03 12:56] LABS: SARS-CoV-2 NAA Rapid Test Not Detected (NotDetected)
[2021-07-03] MEDS ORDERED: Acetaminophen 500 MG TAB ONE (13:09)
[2021-07-03 13:25] LABS: Troponin I Less than 0.010 ng/mL (< 0.028)
[2021-07-03] MEDS ORDERED: Sodium Chloride 0.9% 1,000 ML ONE (14:04)
== END 2021-07-03 16:26 | disposition short-term general hospital (02) ==
LOC: NAV ERS 09:36
DX: R07.9 Chest pain, unspecified (principal); R00.1 Bradycardia, unspecified; E03.9 Hypothyroidism, unspecified; K21.9 Gastro-esophageal reflux disease without esophagitis; E78.5 Hyperlipidemia, unspecified; E78.00 Pure hypercholesterolemia, unspecified; M79.7 Fibromyalgia; Z20.822 Contact with and (suspected) exposure to COVID-19; Z87.19 Personal history of other diseases of the digestive system; Z86.711 Personal history of pulmonary embolism; Z87.891 Personal history of nicotine dependence; Z79.82 Long term (current) use of aspirin; Z79.899 Other long term (current) drug therapy
CPT/HCPCS: 71045; 80053; 81003; 83690; 84484; 85025; 85379; 93005; 96374; C9113; J7050; U0002

== ENCOUNTER 2021-07-18 09:29 | Emergency (ER) | payer MEDICARE ==
[2021-07-18] MEDS ORDERED: Sodium Chloride 0.9% 500 ML ONE (10:19)
[2021-07-18 10:21] LABS: #Basophils 0.1 thou/uL (0.0-0.2); #Eosinphils 0.4 thou/uL (0.0-0.7); #Monocytes 0.3 thou/uL (0.11-0.59); #Neutrophils 1.9 thou/uL (1.40-6.50); %Basophils 3.2 % (0.0-1.0); %Eosinophils 9.9 % (0.0-10.0); %Lymphocytes 26.5 % (21.0-51.0); %Neutrophils 52.4 % (42.0-75.0); Hemoglobin 12.2 g/dL (12.0-16.0); Mean Corpuscular HGB CONC 31.2 g/dL (32.0-36.0); Mean Corpuscular Hemoglobin 29.5 pg (27.0-31.0); Mean Corpuscular Volume 94.7 fL (78.0-98.0); Mean Platelet Volume 7.3 fL (7.4-10.4); Platelet Count 299 thou/uL (130-400); RBC Distribution Width 12.3 % (11.5-14.5); Red Blood Cell (RBC) Count 4.13 mill/uL (4.20-5.40); White Blood Cell (WBC) Count 3.6 thou/uL (4.8-10.8)
[2021-07-18 10:35] LABS: ALT (SGPT) 20 U/L (8-55); AST (SGOT) 29 U/L (5-34); Alkaline Phosphatase 56 U/L (40-110); Anion Gap 18 mmol/L (10-20); BUN (Urea Nitrogen) 21 mg/dL (9.8-20.1); Bilirubin, Total 0.4 mg/dL (0.2-1.2); CK (CPK) 65 U/L (29-168); Calc. Creatinine Clearance 0 mL/min (70-130); Calcium 9.3 mg/dL (7.8-10.44); Carbon Dioxide 26 mmol/L (23-31); Chloride 101 mmol/L (98-107); Globulin 3.2 g/dL (2.4-3.5); Glucose 98 mg/dL (80-115); Lipase 32 U/L (8-78); Potassium 4.7 mmol/L (3.5-5.1); Protein, Total 7.2 g/dL (5.8-8.1); Sodium 140 mmol/L (136-145)
[2021-07-18] MEDS ORDERED: Fioricet 325/50/40 mg Tablet PO SCH (10:45)
[2021-07-18 11:32] LABS: Bilirubin Negative (Negative); Clarity Clear (Clear); Glucose, Urine (Dipstick) Negative (Negative); Ketone, Urine Negative (Negative); Leukocyte Negative (Negative); Nitrite Negative (Negative); Protein, Urine (Dipstick) Negative (Neg-Trace); Specific Gravity, Urine 1.015 (1.005-1.030); Urobilinogen 0.2 mg/dL (Less than 2); pH, Urine 6.5 (5.0-9.0)
[2021-07-18 11:33] LABS: Bacteria/HPF None Seen HPF (None Seen); Blood, Urine Trace (Negative); RBC/HPF None Seen HPF (0-3); Squamous Epithelial None Seen HPF (0-3); WBC/HPF None Seen HPF (0-3)
[2021-07-18 11:47] LABS: SARS-CoV-2 NAA Rapid Test Not Detected (NotDetected)
[2021-07-18] MEDS ORDERED: Aspirin Chewable 81 MG TAB ONE (14:55)
== END 2021-07-18 14:59 | disposition short-term general hospital (02) ==
LOC: NAV ERS 09:29
DX: R07.89 Other chest pain (principal); E78.5 Hyperlipidemia, unspecified; E78.00 Pure hypercholesterolemia, unspecified; K21.9 Gastro-esophageal reflux disease without esophagitis; E03.9 Hypothyroidism, unspecified; Z87.891 Personal history of nicotine dependence; Z86.711 Personal history of pulmonary embolism; Z79.899 Other long term (current) drug therapy; Z79.82 Long term (current) use of aspirin; Z20.822 Contact with and (suspected) exposure to COVID-19
CPT/HCPCS: 71045; 80053; 82550; 83690; 83880; 84484; 85025; 93005; 99285; U0002; 81003; 81015; J7030

== ENCOUNTER 2021-08-03 19:06 | Emergency (ER) | payer MEDICARE ==
[2021-08-03] MEDS ORDERED: predniSONE 20 MG TAB ONE (19:30)
== END 2021-08-03 19:38 | disposition home or self-care (01) ==
LOC: NAV ERS 19:06
DX: M17.0 Bilateral primary osteoarthritis of knee (principal); K21.9 Gastro-esophageal reflux disease without esophagitis; Z87.891 Personal history of nicotine dependence; Z79.899 Other long term (current) drug therapy; Z79.82 Long term (current) use of aspirin
CPT/HCPCS: 99283; J7512

== ENCOUNTER 2021-10-03 20:11 | Emergency (ER) | payer MEDICARE ==
[~2021-10-03 20:11] MED LIST: Iopamidol 370 76% 100 ML VIAL ONE
[2021-10-03] MEDS ORDERED: Morphine 4 MG/ML VIAL ONE ×2 (20:47→22:05)
[2021-10-03] MEDS ORDERED: Ondansetron PF 4 MG/2 ML Vial ONE ×2 (20:47→22:06)
[2021-10-03] MEDS ORDERED: Sodium Chloride 0.9% 1,000 ML ONE ×2 (20:47→23:41)
[2021-10-03 20:59] LABS: #Basophils 0.1 thou/uL (0.0-0.2); #Eosinphils 0.2 thou/uL (0.0-0.7); #Lymphocytes 1.2 thou/uL (1.20-3.40); #Monocytes 0.4 thou/uL (0.11-0.59); #Neutrophils 5.5 thou/uL (1.40-6.50); %Basophils 1.8 % (0.0-1.0); %Eosinophils 2.4 % (0.0-10.0); %Lymphocytes 16.5 % (21.0-51.0); %Monocytes 5.7 % (0.0-10.0); %Neutrophils 73.6 % (42.0-75.0); Hemoglobin 13.2 g/dL (12.0-16.0); Mean Corpuscular HGB CONC 30.3 g/dL (32.0-36.0); Mean Corpuscular Hemoglobin 29.2 pg (27.0-31.0); Mean Corpuscular Volume 96.4 fL (78.0-98.0); Mean Platelet Volume 6.4 fL (7.4-10.4); Platelet Count 236 thou/uL (130-400); RBC Distribution Width 12.9 % (11.5-14.5); Red Blood Cell (RBC) Count 4.51 mill/uL (4.20-5.40); White Blood Cell (WBC) Count 7.4 thou/uL (4.8-10.8)
[2021-10-03 21:12] LABS: ALT (SGPT) 46 U/L (8-55); AST (SGOT) 52 U/L (5-34); Albumin 4.1 g/dL (3.4-4.8); Alkaline Phosphatase 113 U/L (40-110); Anion Gap 18 mmol/L (10-20); BUN (Urea Nitrogen) 23 mg/dL (9.8-20.1); Bilirubin, Total 0.3 mg/dL (0.2-1.2); Calc. Creatinine Clearance 0 mL/min (70-130); Calcium 9.3 mg/dL (7.8-10.44); Carbon Dioxide 23 mmol/L (23-31); Chloride 104 mmol/L (98-107); Estimated GFR 85; Globulin 2.8 g/dL (2.4-3.5); Glucose 119 mg/dL (80-115); Lipase 74 U/L (8-78); Potassium 4.3 mmol/L (3.5-5.1); Protein, Total 6.9 g/dL (5.8-8.1); Sodium 141 mmol/L (136-145)
[2021-10-03 21:50] LABS: Bilirubin Negative (Negative); Blood, Urine Trace (Negative); Clarity Clear (Clear); Glucose, Urine (Dipstick) Negative (Negative); Ketone, Urine Negative (Negative); Leukocyte Trace (Negative); Nitrite Negative (Negative); Protein, Urine (Dipstick) Negative (Neg-Trace); Urobilinogen 0.2 mg/dL (Less than 2)
[2021-10-03 21:56] LABS: Squamous Epithelial 0-3 HPF (0-3)
[2021-10-03 21:57] LABS: Bacteria/HPF Rare-Few HPF (None Seen)
[2021-10-03 23:12] LABS: SARS-CoV-2 NAA Rapid Test Not Detected (NotDetected)
== END 2021-10-03 23:53 | disposition short-term general hospital (02) ==
LOC: NAV ERS 20:11
DX: K56.2 Volvulus (principal); E78.00 Pure hypercholesterolemia, unspecified; K21.9 Gastro-esophageal reflux disease without esophagitis; E03.9 Hypothyroidism, unspecified; Z87.891 Personal history of nicotine dependence; Z20.822 Contact with and (suspected) exposure to COVID-19
CPT/HCPCS: 74177; 80053; 83605; 83690; 84484; 85025; 93005; 96361; 96374; 96375; 96376; 99285; U0002; 81003; 81015; J2270; J2405; J7050; Q9967

== ENCOUNTER 2021-10-19 10:19 | Outpatient (CLI) | payer MEDICARE | END 2021-10-19 10:20 | disposition home or self-care (01) | LOC: NAV RAD 10:19 | PROVIDERS: ATTEND Surgery | DX: G89.18 Other acute postprocedural pain (principal); R10.9 Unspecified abdominal pain | CPT/HCPCS: 74019 ==

== ENCOUNTER 2021-10-31 15:28 | Outpatient (CLI) | payer MEDICARE | END 2021-10-31 15:29 | disposition home or self-care (01) | LOC: NAV LAB 15:28 | PROVIDERS: ATTEND Radiology Diagnostic Radiology | DX: Z01.812 Encounter for preprocedural laboratory examination (principal) | CPT/HCPCS: 36415; 82565 ==

== ENCOUNTER 2021-11-02 08:42 | Outpatient (CLI) | payer MEDICARE ==
[2021-11-02] MEDS ORDERED: Iopamidol 370 76% 100 ML VIAL ONE (09:00)
== END 2021-11-02 08:43 | disposition home or self-care (01) ==
LOC: NAV CT 08:42
PROVIDERS: ATTEND Surgery
DX: R10.9 Unspecified abdominal pain (principal); K63.89 Other specified diseases of intestine; R19.5 Other fecal abnormalities; Z98.890 Other specified postprocedural states
CPT/HCPCS: 74177; Q9967

== ENCOUNTER 2022-01-22 16:37 | Emergency (ER) | payer MEDICARE ==
[2022-01-22] MEDS ORDERED: Meclizine HCl 25 MG TAB ONE (18:38)
== END 2022-01-22 19:40 | disposition home or self-care (01) ==
LOC: NAV ERS 16:37
DX: R42 Dizziness and giddiness (principal)
CPT/HCPCS: 99283

== ENCOUNTER 2022-03-12 04:45 | Emergency (ER) | payer MEDICARE | END 2022-03-12 05:20 | disposition home or self-care (01) | LOC: NAV ERS 04:45 | DX: U07.1 COVID-19 (principal); J20.8 Acute bronchitis due to other specified organisms; E03.9 Hypothyroidism, unspecified; E78.00 Pure hypercholesterolemia, unspecified; K21.9 Gastro-esophageal reflux disease without esophagitis; Z79.899 Other long term (current) drug therapy; Z79.82 Long term (current) use of aspirin | CPT/HCPCS: 99283; U0003; U0005 ==

== ENCOUNTER 2022-04-09 18:25 | Emergency (ER) | payer OTHER, MEDICARE ==
[2022-04-09] MEDS ORDERED: Ibuprofen 200 MG TAB ONE (19:04)
[2022-04-09 19:12] LABS: Bilirubin Negative (Negative); Blood, Urine Large (Negative); Clarity Cloudy (Clear); Glucose, Urine (Dipstick) Negative (Negative); Ketone, Urine Negative (Negative); Leukocyte Small (Negative); Nitrite Positive (Negative); Protein, Urine (Dipstick) > or equal to 300 mg/dL (Neg-Trace); Specific Gravity, Urine 1.025 (1.005-1.030); Urobilinogen 0.2 mg/dL (Less than 2)
[2022-04-09 19:16] LABS: RBC/HPF Greater than 50 HPF (0-3)
[2022-04-09 19:17] LABS: Bacteria/HPF 3+ HPF (None Seen); Squamous Epithelial 0-3 HPF (0-3)
[2022-04-09] MEDS ORDERED: Lidocaine 1% (PF) 30 ML VIAL ONE (20:11)
[2022-04-09] MEDS ORDERED: cefTRIAXone\\ROCEPHIN 1 GM VIAL ONE (20:11)
[2022-04-09] MEDS ORDERED: Cyclobenzaprine 10 MG TAB ONE (20:36)
== END 2022-04-09 20:55 | disposition home or self-care (01) ==
LOC: NAV ERS 18:25
DX: S39.92XA Unspecified injury of lower back, initial encounter (principal); M47.896 Other spondylosis, lumbar region; N39.0 Urinary tract infection, site not specified; E03.9 Hypothyroidism, unspecified; K21.9 Gastro-esophageal reflux disease without esophagitis; E78.00 Pure hypercholesterolemia, unspecified; M79.7 Fibromyalgia; X50.0XXA Overexertion from strenuous movement or load, initial encounter; Y93.01 Activity, walking, marching and hiking; Y92.69 Other specified industrial and construction area as the place of occurrence of the external cause; Z79.82 Long term (current) use of aspirin; Z79.899 Other long term (current) drug therapy
CPT/HCPCS: 72100; 72170; 81003; 81015; 96372; J0696; J2001

== ENCOUNTER 2022-05-16 17:12 | Emergency (ER) | payer MEDICARE ==
[2022-05-16] MEDS ORDERED: Ondansetron ODT 4 MG TAB ONE (17:43)
[2022-05-16] MEDS ORDERED: Levalbuterol HCl 0.63 MG/3 ML NEB ONE (17:43)
[2022-05-16] MEDS ORDERED: Lidocaine Viscous Sol 2% 15 ml UD Cup ONE (17:43)
[2022-05-16] MEDS ORDERED: Mag-Al Plus 1200 MG/1200 MG/120 MG/30 ML UDCUP ONE (17:43)
[2022-05-16] MEDS ORDERED: Dicyclomine 20 MG TAB ONE (18:27)
== END 2022-05-16 19:16 | disposition home or self-care (01) ==
LOC: NAV ERS 17:12
DX: R10.33 Periumbilical pain (principal); E78.00 Pure hypercholesterolemia, unspecified; K21.9 Gastro-esophageal reflux disease without esophagitis; E03.9 Hypothyroidism, unspecified; Z79.899 Other long term (current) drug therapy
CPT/HCPCS: 99283; J7614; Q0162

== ENCOUNTER 2023-01-16 15:05 | Outpatient (CLI) | payer MEDICARE | END 2023-01-16 15:06 | disposition home or self-care (01) | LOC: NAV RAD 15:05 | PROVIDERS: ATTEND Family Medicine | DX: M25.512 Pain in left shoulder (principal); M25.612 Stiffness of left shoulder, not elsewhere classified; M19.012 Primary osteoarthritis, left shoulder ==

== ENCOUNTER 2023-08-16 16:57 | Emergency (ER) | payer MEDICARE ==
[2023-08-16 17:36] LABS: #Basophils 0.1 thou/uL (0.0-0.2); #Eosinphils 0.3 thou/uL (0.0-0.7); #Lymphocytes 1.6 thou/uL (1.20-3.40); #Monocytes 0.6 thou/uL (0.11-0.59); #Neutrophils 2.1 thou/uL (1.40-6.50); %Basophils 2.1 % (0.0-1.0); %Eosinophils 6.9 % (0.0-10.0); %Lymphocytes 34.2 % (21.0-51.0); %Neutrophils 44.7 % (42.0-75.0); Hematocrit 37.6 % (36.0-47.0); Hemoglobin 11.4 g/dL (12.0-16.0); Mean Corpuscular HGB CONC 30.4 g/dL (32.0-36.0); Mean Corpuscular Hemoglobin 28.5 pg (27.0-31.0); Mean Corpuscular Volume 93.7 fl (78.0-98.0); Mean Platelet Volume 5.1 fL (7.4-10.4); Platelet Count 232 10x3/uL (130-400); RBC Distribution Width 12.5 % (11.5-14.5); Red Blood Cell (RBC) Count 4.01 mill/uL (4.20-5.40); White Blood Cell (WBC) Count 4.6 10x3/uL (4.8-10.8)
[2023-08-16] MEDS ORDERED: Ondansetron PF 4 MG/2 ML Vial ONE (17:36)
[2023-08-16] MEDS ORDERED: Sucralfate 1 GM TAB ONE (17:36)
[2023-08-16] MEDS ORDERED: Mag-Al Plus 1200/1200/120 MG (30 mL) UDCUP ONE (17:36)
[2023-08-16] MEDS ORDERED: Lidocaine 2% Viscous 100 ML BOTTLE ONE (17:37)
[2023-08-16] MEDS ORDERED: Pantoprazole 40 MG VIAL ONE (17:37)
[2023-08-16 17:45] LABS: Bilirubin Negative (Negative); Blood, Urine Trace (Negative); Glucose, Urine (Dipstick) Negative (Negative); Ketone, Urine Negative (Negative); Leukocyte Moderate (Negative); Nitrite Positive (Negative); Protein, Urine (Dipstick) Negative (Neg-Trace); Urobilinogen 0.2 mg/dL (Less than 2)
[2023-08-16 17:47] LABS: Clarity Hazy (Clear)
[2023-08-16 17:53] LABS: Bacteria/HPF 4+ HPF (None Seen); CAUTI Indications for Culture Pelvic or flank pain; RBC/HPF 0-3 HPF (0-3); Squamous Epithelial 0-3 HPF (0-3)
[2023-08-16 17:54] LABS: Urine Culture Reflex No No
[2023-08-16 17:59] LABS: ALT (SGPT) 20 U/L (8-55); AST (SGOT) 24 U/L (5-34); Albumin 3.7 g/dL (3.4-4.8); Alkaline Phosphatase 63 U/L (40-110); Anion Gap 13 mmol/L (10-20); BUN (Urea Nitrogen) 20 mg/dL (9.8-20.1); Bilirubin, Total 0.3 mg/dL (0.2-1.2); Calc. Creatinine Clearance 0 mL/min (70-130); Calcium 8.9 mg/dL (7.8-10.44); Carbon Dioxide 27 mmol/L (23-31); Chloride 105 mmol/L (98-107); Estimated GFR 74; Glucose 86 mg/dL (80-115); Lipase 48 U/L (8-78); Potassium 4.3 mmol/L (3.5-5.1); Protein, Total 6.7 g/dL (5.8-8.1); Sodium 141 mmol/L (136-145); Troponin I Less than 0.010 ng/mL (< 0.028)
[2023-08-16] MEDS ORDERED: Cephalexin 250 MG CAP ONE (19:39)
== END 2023-08-16 19:45 | disposition home or self-care (01) ==
LOC: NAV ERS 16:57
DX: K29.00 Acute gastritis without bleeding (principal); N39.0 Urinary tract infection, site not specified; K21.9 Gastro-esophageal reflux disease without esophagitis; E78.00 Pure hypercholesterolemia, unspecified; E03.9 Hypothyroidism, unspecified; Z79.899 Other long term (current) drug therapy; Z79.82 Long term (current) use of aspirin
CPT/HCPCS: 71045; 74177; 80053; 81001; 83690; 84484; 85025; 93005; C9113; J2405; 96374; 96375; Q9967

== ENCOUNTER 2024-12-15 12:24 | Outpatient (CLI) | payer MEDICARE, OTHER | END 2024-12-15 12:25 | disposition home or self-care (01) | LOC: NAV RAD 12:24 | PROVIDERS: ATTEND Surgery | DX: M47.22 Other spondylosis with radiculopathy, cervical region (principal); M48.02 Spinal stenosis, cervical region; M40.40 Postural lordosis, site unspecified; Z98.1 Arthrodesis status | CPT/HCPCS: 72040 ==

== ENCOUNTER 2025-01-06 08:59 | Emergency (ER) | payer MEDICARE, OTHER ==
[2025-01-06 09:45] LABS: #Basophils 0.1 thou/uL (0.0-0.2); #Eosinophils 0.3 thou/uL (0.0-0.7); #Lymphocytes 1.1 thou/uL (1.20-3.40); #Monocytes 0.4 thou/uL (0.11-0.59); #Neutrophils 2.2 thou/uL (1.40-6.50); %Basophils 2.0 % (0.0-1.0); %Eosinophils 6.9 % (0.0-10.0); %Lymphocytes 26.7 % (21.0-51.0); %Monocytes 9.4 % (0.0-10.0); %Neutrophils 55.0 % (42.0-75.0); Hematocrit 37.6 % (36.0-47.0); Hemoglobin 11.7 g/dL (12.0-16.0); Mean Corpuscular Hemoglobin 27.1 pg (27.0-31.0); Mean Corpuscular Volume 87.3 fl (78.0-98.0); Platelet Count 244 10x3/uL (130-400); Red Blood Cell (RBC) Count 4.31 mill/uL (4.20-5.40); White Blood Cell (WBC) Count 3.9 10x3/uL (4.8-10.8)
[2025-01-06 09:59] LABS: Anion Gap 13 mmol/L (10-20); BUN (Urea Nitrogen) 13 mg/dL (9.8-20.1); Calc. Creatinine Clearance 0 mL/min (70-130); Calcium 8.9 mg/dL (7.8-10.44); Carbon Dioxide 24 mmol/L (23-31); Chloride 107 mmol/L (98-107); Glucose 91 mg/dL (80-115); Potassium 3.8 mmol/L (3.5-5.1); Sodium 140 mmol/L (136-145); Uric Acid 4.1 mg/dL (2.5-6.2)
== END 2025-01-06 10:20 | disposition home or self-care (01) ==
LOC: NAV ERS 08:59
DX: M13.831 Other specified arthritis, right wrist (principal); E03.9 Hypothyroidism, unspecified; E78.00 Pure hypercholesterolemia, unspecified; Z79.890 Hormone replacement therapy; Z79.899 Other long term (current) drug therapy
CPT/HCPCS: 36415; 80048; 84550; 85025; 96372; 99283; J2919